=== PATIENT | male | born 1985 | race Caucasian/White ===

== ENCOUNTER 2017-06-07 10:14 | Emergency (ER) | payer OTHER ==
[~2017-06-07] VITALS: Ht 172.7 cm; Wt 75.3 kg
[2017-06-07 10:18] VITALS: Ht 172.7 cm; Wt 75.3 kg
[2017-06-07] MEDS ORDERED: CEPH-443 PO (11:07)
[2017-06-07] MEDS ORDERED: IBUP-1542 PO (11:07)
[2017-06-07] MEDS ORDERED: SULF1TAB31 PO (11:07)
--- NOTE | 2017-06-07 11:09 | ERD ---
ER Documentation Chief Complaint Chief Complaint Complains of left arm cellulitis x 3 days HPI This 31-year-old male presents with a history of multiple abscesses and redness in his left forearm and elbow. Patient is a injection drug user. Denies any fevers, vomiting, additional symptoms. He has had some skin lesion which she has been popping at home and expressing pus although the redness increased over the last 3 days. ROS All systems reviewed and are negative except as per history of present illness. Medications Home Meds Active Scripts Ibuprofen* (Motrin*) 600 Mg Tab, 600 MG PO Q6, #15 TAB Prov:ETHAN LIMON MD 06/07/17 Cephalexin* (Keflex*) 500 Mg Capsule, 500 MG PO QID for 10 Days, CAP Prov:ETHAN LIMON MD 06/07/17 Sulfamethoxazole/Trimethoprim* (Bactrim Ds* Tablet) 1 Each Tablet, 1 TAB PO BID for 10 Days, #20 TAB Prov:ETHAN LIMON MD 06/07/17 PMhx/Soc Medical and Surgical Hx: pt denies Medical Hx, pt denies Surgical Hx Hx Alcohol Use: No Hx Substance Use: No Hx Tobacco Use: No Physical Exam Vitals Vital Signs Date Time Temp Pulse Resp B/P Pulse Ox O2 Delivery O2 Flow Rate FiO2 06/07/17 10:18 97.9 96 20 134/72 98 Physical Exam Const: [] Alert, [id number]. Head: Atraumatic Eyes: Normal Conjunctiva ENT: Normal External Ears, Nose and Mouth. Neck: Full range of motion..~ No meningismus. Resp: Clear to auscultation bilaterally Cardio: Regular rate and rhythm, no murmurs Abd: Soft, non tender, non distended. Normal bowel sounds Skin: No petechiae or rashes. There are scattered small areas of healing abscesses and pustules of varying stages of healing on the bilateral forearms. Left forearm has areas of erythema and induration. There is no appreciable fluctuance. No appreciable effusion or streaking. No evidence of ischemia or tendon deficits. Back: No midline or flank tenderness Ext: No cyanosis, or edema Neur: Awake and alert Psych: Normal Mood and Affect Results 24 hrs Current Medications Medications (Trade) Dose Ordered Sig/Angelica Route PRN Reason Start Time Stop Time Status Last Admin Dose Admin Clindamycin Phosphate (Cleocin) 600 mg ONCE ONCE IM 06/07/17 11:30 06/07/17 11:31 Trimethoprim/ Sulfamethoxazole (Bactrim (Ds)) 1 tab ONCE ONCE PO 06/07/17 11:30 06/07/17 11:31 Procedures/MDM Patient presents with cellulitis and multiple small abscesses which have spontaneously drained on his left forearm worsening over the last week. No current signs or symptoms to suggest septic arthritis, necrotizing fasciitis, ischemia, sepsis. Patient was given clindamycin 600 mg IM Bactrim double strength and will be treated with Keflex and Bactrim at home, instructions for elevation and warm compresses instructions for 2 day recheck for possible incision and drainage or reevaluation. Patient was advised of possible more invasive procedures and hospitalization for no improvement or worsening conditions. Patient is advised to return sooner for worsening redness, fevers, vomiting, new worsening symptoms prior to the 2 day recheck. The patient was stable with no new complaints during the ER course. Clinically, there is no current evidence to suggest meningitis, sepsis, acute abdomen, pneumonia, acute coronary syndrome, pulmonary embolism, or any other emergent condition appearing to require further evaluation or hospitalization. The patient should certainly return for any new or worsening symptoms per the aftercare instructions. They should otherwise follow-up with her primary care doctor for reevaluation this week. Departure Diagnosis: Primary Impression: Cellulitis Site of cellulitis: extremity Site of cellulitis of extremity: upper extremity Laterality: left Qualified Code: L03.114 - Cellulitis of left upper extremity Additional Impression: Abscess Condition: Stable Patient Instructions: Cellulitis, Abscess, Antiobiotic Treatment Only Additional Instructions: Warm compresses and elevate at home. Recheck in 2 days for evaluation for incision and drainage or possible no improvement. Recheck sooner for worsening redness, fevers, new symptoms. ETHAN LIMON MD Jun 07, 2017 11:09
[2017-06-07] MEDS ORDERED: IBUPROFEN 600 MG TAB PO ONE (11:30)
[2017-06-07] MEDS ORDERED: CLINDAMYCIN 300 MG INJ IM ONE (11:30)
[2017-06-07] MEDS ORDERED: TRIMETHOPRIM/SULFAMETHOX (DS) TAB PO ONE (11:30)
== END 2017-06-07 11:28 | disposition home or self-care (01) ==
LOC: FTE 10:14
DX: L03.114 Cellulitis of left upper limb (principal); L02.414 Cutaneous abscess of left upper limb
CPT/HCPCS: 96372; Z7502; Z7610